=== PATIENT | male | born 1985 | race African-American/Black ===

== ENCOUNTER 2016-10-05 12:06 | Observation (INO) | payer OTHER ==
[~2016-10-05] VITALS: Ht 165.1 cm; Wt 61.2 kg
--- NOTE | 2016-10-05 06:45 | NUR ---
RECEIVED REPORT FROM BARBARA ALONSO AWAITING PT'S ARRIVAL. Addendum: 10/05/16 at 1919 by Berna Gardner RN INCORRECT TIME ENTERED. RECEIVED REPORT AT 184.
--- NOTE | 2016-10-05 12:06 | NUR ---
Patient was BIBA at this time.
--- NOTE | 2016-10-05 12:08 | NUR ---
Patient taken to lobby via gutamara.
[2016-10-05 12:09] VITALS: BP 109/63
--- NOTE | 2016-10-05 12:11 | NUR ---
MD SIRI STATES PT. OK TO WAIT IN LOBBY
--- NOTE | 2016-10-05 14:32 | NUR ---
Patient ambulated to bed 03.
--- NOTE | 2016-10-05 14:35 | NUR ---
31M BIBA FROM STORE C/O RT LOWER ABDOMINAL PAIN, SHARP, NON-RADIATING X 2 DAYS; ABDOMEN SOFT, FLAT, PT STATES SLIGHTLY TENDER, ACTIVE BOWEL SOUNDS X 4 QUADRANTS; PT C/O DIARRHEA X 5 EPISODES TODAY; STATES HAS NAUSEA, BUT DENIES VOMITING AT THIS TIME; A&OX4, BL LUNG SOUNDS CLEAR, RR EVEN/UNLABORED, SKIN IS WARM/DRY/INTACT AT THIS TIME; PT RESTING IN BED W/ HOB ELEVATED AND IN LOWEST POSITION; POSITIONED FOR COMFORT; ER MD MADE AWARE OF STATUS. WILL CONTINUE TO MONITOR.
--- NOTE | 2016-10-05 14:47 | NUR ---
ER MD DR. SHELLEY EVALUATING PT AT BEDSIDE.
[2016-10-05] MEDS ORDERED: NACL 0.9% 1,000 ML IV SCH (14:49)
[2016-10-05] MEDS ORDERED: ONDANSETRON 4 MG/2 ML VIAL IVP ONE (14:50)
[2016-10-05] MEDS ORDERED: FAMOTIDINE 20 MG/2 ML VIAL IVP ONE (14:50)
--- NOTE | 2016-10-05 16:20 | NUR ---
Patient going to CT via wheelchair per tech.
--- NOTE | 2016-10-05 16:20 | NUR ---
PT TAKEN TO CT VIA W/C ACCOMPANIED BY FOAM CASTER.
--- NOTE | 2016-10-05 16:38 | NUR ---
Patient back from CT via wheelchair per tech.
--- NOTE | 2016-10-05 17:06 | NUR ---
Patient appears to be resting comfortably in bed. Vital Signs within normal limits. Respirations even and unlabored. WILL CONTINUE TO MONITOR.
[2016-10-05] MEDS ORDERED: cefTRIAXone 2,000 MG in DEXTROSE 5% 100 ML IV ONE (18:25)
--- NOTE | 2016-10-05 18:43 | NUR ---
REPORT GIVEN TO WADE RN; WADE ASKED FOR 10 MINUTES TO CLEAN ROOM.
[2016-10-05] MEDS ORDERED: cefTRIAXone 2,000 MG VIAL ONE (18:45)
--- NOTE | 2016-10-05 18:55 | NUR ---
Patient will be admitted to care of . Admited to [facility]. Will go to room 106A. Belongings list completed. Report to ARCADIO OLVERA.
--- NOTE | 2016-10-05 18:55 | NUR ---
PT ARRIVED TO UNIT. VSS. WILL CONTINUE TO MONITOR.
--- NOTE | 2016-10-05 19:29 | NUR ---
ENDORSED CARE TO ARCADIO ZHU. PT IN STABLE CONDITION.
--- NOTE | 2016-10-05 19:30 | NUR ---
RECEIVED REPORT FROM WADE FIELDS RN AT BEDSIDE. Admitted from [facility] with chief complaint of RIGHT LOWER QUADRANT ABDOMINAL PAIN. A 31 y/o, Male, Appropriate. ALERT AWAKE ORIENTED X4. INITIAL ASSESSMENT DONE. NO S/S OF RESPIRATORY DISTRESS OR SOB NOTED. NO C/O PAIN OR ANY DISCOMFORT AT THIS TIME. SKIN IS INTACT CLEAN DRY AND WARM TO TOUCH. PLAN OF CARE REVIEWED TO PT AND VERBALIZED UNDERSTANDING. oriented to call light, bed, phone,television, bathroom, smoking policy, visiting hours, procedures, ID bracelet on. Belongings list checked. CALL LIGHT WITHIN REACH. WILL CONTINUE TO MONITOR.
[2016-10-05] MEDS ORDERED: MORPHINE SULFATE 4 MG/ML SYR IVP PRN (20:45)
[2016-10-05] MEDS ORDERED: ONDANSETRON 4 MG/2 ML VIAL IVP PRN (20:45)
[2016-10-05] MEDS ORDERED: ACETAMINOPHEN 325 MG TAB PO PRN (20:45)
[2016-10-05] MEDS ORDERED: LEVOFLOXACIN 250 MG/D5 PREMIX 50 ML IV SCH (20:45)
[2016-10-05] MEDS: DEXT 5% /NACL 0.9% 1,000 ML IV SCH (21:26)
[2016-10-06] VITALS: BP 117/86
--- NOTE | 2016-10-06 00:10 | NUR ---
PT IS SLEEPING RIGHT NOW BUT EASILY AROUSABLE. NO S/S OF ANY DISCOMFORT AT THIS TIME. ALL NEEDS ARE ATTENDED. CALL LIGHT WITHIN REACH. WILL CONTINUE TO MONITOR.
--- NOTE | 2016-10-06 05:30 | NUR ---
AM CARE RENDERED. BED LINEN CHANGED. INSTRUCTED PT TO REPOSITION. KEPT CLEAN AND DRY. CALL LIGHT WITHIN REACH. WILL CONTINUE TO MONITOR.
--- NOTE | 2016-10-06 06:00 | NUR ---
DR. HAMMER CAME TO SEE PT AND NEW ORDERS WERE GIVEN (PLS SEE CPOE). NEW ORDERS NOTED AND CARRIED OUT. WILL CONTINUE TO MONITOR.
[2016-10-06] MEDS: DEXT 5% /NACL 0.9% 1,000 ML IV SCH (06:51)
--- NOTE | 2016-10-06 07:20 | NUR ---
PT HAS NO S/S OF ANY DISCOMFORT. PLAN OF CARE ENDORSED TO BREA ERVIN AT BEDSIDE FOR CONTINUITY OF CARE.
--- NOTE | 2016-10-06 07:21 | NUR ---
RECEIVED REPORT FROM ARCADIO ZHU. PT IS AMBULATING TO GO TO BED FROM RESTROOM. PT IS AAO X4, SKIN INTACT, IV ON LEFT AC PATENT AND INTACT INFUSING FLUID WELL, INITIAL ASSESSMENT DONE, NO S/S OF RESPIRATORY DISTRESS OR DISCOMFORT NOTED, SAFETY/FALL PRECAUTION ENFORCED, CALL LIGHT WITHIN REACH, WILL CONTINUE TO MONITOR.
[2016-10-06 07:43] VITALS: BP 107/57
--- NOTE | 2016-10-06 09:09 | NUR ---
PATIENT HAS BEEN SCREENED AND CATEGORIZED MODERATE NUTRITION RISK. PATIENT WILL BE SEEN WITHIN 3-5 DAYS OF ADMISSION. 10/08/16-10/10/[address]
--- NOTE | 2016-10-06 09:21 | NUR ---
NO DUE MEDS GIVEN, PT IS SLEEPING AT THIS TIME, NO S/S OF RESPIRATORY DISTRESS OR DISCOMFORT NOTED, CALL LIGHT WITHIN REACH, WILL CONTINUE TO MONITOR.
--- NOTE | 2016-10-06 11:46 | NUR ---
PT IS SLEEPING AT THIS TIME, NO S/S OF RESPIRATORY DISTRESS OR DISCOMFORT NOTED, CALL LIGHT WITHIN REACH, WILL CONTINUE TO MONITOR.
[2016-10-06] MEDS ORDERED: MAG SULF 2000 MG/WATER PREMIX 50 ML IV SCH (13:00)
--- NOTE | 2016-10-06 14:12 | NUR ---
CALLED AND SPOKE TO DR. HAMMER INFORMED REGARDING U/S OF ABDOMEN RESULT. NEW ORDERS RECEIVED, PT IS CLEARED BY DR. HAMMER TO GO HOME. CHARGE NURSE MADE AWARE. WILL INFORM DR. OCAMPO.
--- NOTE | 2016-10-06 14:21 | NUR ---
SPOKE TO DR. OCAMPO AND INFORMED REGARDING DR. HAMMER CLEARING THE PT TO GO HOME, DR. OCAMPO AGREES AND OKAY PT TO GO HOME AFTER EATING. WILL CARRY OUT NEW ORDER.
--- NOTE | 2016-10-06 15:05 | NUR ---
PT IS RESTING ON BED, ALL NEEDS MET AT THIS TIME, CALL LIGHT WITHIN REACH, WILL CONTINUE TO MONITOR.
[2016-10-06 16:00] VITALS: BP 122/57
--- NOTE | 2016-10-06 16:20 | NUR ---
DISCHARGE INSTRUCTIONS GIVEN, PT VERBALIZED UNDERSTANDING, REMOVED ID WRISTBAND AND IV, CATHETER TIP INTACT, ALL QUESTIONS ANSWERED, PT LEFT THE UNIT AMBULATING.
== END 2016-10-06 16:20 | disposition home or self-care (01) ==
LOC: MED 12:06 → MTU 18:28
PROVIDERS: ADMIT Internal Medicine Pulmonary Disease; ATTEND Internal Medicine Pulmonary Disease
DX: R10.31 Right lower quadrant pain (principal); Z87.891 Personal history of nicotine dependence
CPT/HCPCS: 36415; 71010; 74177; 76700; 80053; 81001; 82150; 83690; 83735; 85025; 85610; 87081; 96361; 96365; 96366; 96367; 96375; 99285; G0378; J0696; J1956; J2405; J3475; J3490; J7030; J7042; Q0092; Q9967